=== PATIENT | male | born 1955 ===

== ENCOUNTER 2018-07-18 11:01 | Inpatient (IN) ==
[2018-07-18 12:07] LABS: Basophils % 0.4 % (0.0-0.8); Eosinophils # 0.2 10*3/uL (0.0-0.87); Eosinophils % 2.1 % (0.00-10.9); Hematocrit 39.6 VOL% (42.0-52.0); Hemoglobin 13.9 GM/DL (14.0-18.0); Immature Granulocytes % 0.7 %; Immature Granulocytes Absolute 0.07 #; Lymphocytes # 1.9 10*3/uL (1.4-4.0); Lymphocytes % 18.1 % (21.2-54.2); Mean Corpuscular HGB Conc 35.1 GM/DL (32-36); Mean Corpuscular Hemoglobin 31 PG (27-34); Mean Platelet Volume 9.4 FL (9.6-12.0); Monocytes # 0.9 10*3/uL (0.11-0.8); Monocytes % 8.7 % (1.7-12.7); Neutrophils # 7.5 10*3/uL (1.4-7.4); Platelet Count 347 T/CUMM (130-400); White Blood Count 10.7 T/CUMM (4-12)
[2018-07-18] MEDS ORDERED: ONDANSETRON 4 MG/2 ML VIAL IV STA (12:37)
[2018-07-18] MEDS ORDERED: MORPHINE 4 MG/1 ML VIAL IV STA (12:37)
[2018-07-18] MEDS ORDERED: ONDANSETRON 4 MG/2 ML VIAL ONE (12:41)
[2018-07-18] MEDS ORDERED: MORPHINE 4 MG/1 ML VIAL ONE (12:41)
[2018-07-18 12:42] LABS: Albumin 3.7 G/DL (3.4-5.0); Bilirubin,Total 0.6 MG/DL (0.2-1.0); Potassium 3.7 MMOL/L (3.5-5.1); Total Protein 7.9 G/DL (6.4-8.3)
[2018-07-18] MEDS ORDERED: SODIUM CHLORIDE 0.9% 1,000 ML IV STA (12:46)
[2018-07-18] MEDS ORDERED: VANCOMYCIN INJ 1,000 MG in SODIUM CHLORIDE 0.9% 250 ML IV STA (12:46)
[2018-07-18] MEDS ORDERED: DOCUSATE SODIUM 100 MG CAPSULE PO PRN (14:14)
[2018-07-18] MEDS ORDERED: ACETAMINOPHEN 325 MG TABLET PO PRN (14:14)
[2018-07-18] MEDS ORDERED: GLUCAGON 1 MG VIAL IM PRN (14:18)
[2018-07-18] MEDS ORDERED: DEXTROSE 50% 25 GM/50 ML VIAL IV PRN (14:18)
[2018-07-18] MEDS: CLINDAMYCIN INJ 600 MG in PREMIX 1 EACH IV SCH ×2 (16:04→23:00)
[2018-07-18] MEDS: SODIUM CHLORIDE 0.9% 1,000 ML IV SCH (16:04)
[2018-07-18] MEDS: ENOXAPARIN 40 MG/0.4 ML SYRINGE SUBCUT SCH (16:05)
[2018-07-18] MEDS: INSULIN LISPRO 100 UNIT/ML SUBCUT SCH ×2 (18:08→20:23)
[2018-07-18] MEDS: MORPHINE 4 MG/1 ML VIAL IV PRN (20:05)
[2018-07-18] MEDS: MUPIROCIN 2% OINT 22 GM TUBE TOP SCH (20:23)
[2018-07-18] MEDS: [UNRECOGNIZED DRUG - OTHER] TOP SCH (20:24)
[2018-07-18] MEDS ORDERED: HYDROmorphone 2 MG/1 ML VIAL IV PRN (21:34)
[2018-07-18] MEDS: ONDANSETRON 4 MG/2 ML VIAL IV PRN (23:35)
[2018-07-19] MEDS: SODIUM CHLORIDE 0.9% 1,000 ML IV SCH ×4 (00:04→13:45)
[2018-07-19] MEDS: VANCOMYCIN INJ 1,250 MG in SODIUM CHLORIDE 0.9% 250 ML IV SCH ×2 (02:57→15:29)
[2018-07-19 03:38] LABS: Basophils % 0.3 % (0.0-0.8); Eosinophils # 0.2 10*3/uL (0.0-0.87); Eosinophils % 1.4 % (0.00-10.9); Hemoglobin 12.9 GM/DL (14.0-18.0); Immature Granulocytes % 0.6 %; Immature Granulocytes Absolute 0.07 #; Lymphocytes # 1.7 10*3/uL (1.4-4.0); Lymphocytes % 14.7 % (21.2-54.2); Mean Corpuscular HGB Conc 33.1 GM/DL (32-36); Mean Corpuscular Hemoglobin 30 PG (27-34); Mean Corpuscular Volume 90.1 FL (87-102); Mean Platelet Volume 9.6 FL (9.6-12.0); Monocytes # 0.9 10*3/uL (0.11-0.8); Monocytes % 7.6 % (1.7-12.7); Neutrophils # 8.9 10*3/uL (1.4-7.4); Neutrophils % 75.4 % (38.7-73.9); Platelet Count 344 T/CUMM (130-400); Red Blood Count 4.33 MC/CUMM (3.8-5.5); Red Cell Distribution Width 12.9 % (9.3-17.3); White Blood Count 11.7 T/CUMM (4-12)
[2018-07-19 03:57] LABS: Albumin 3.4 G/DL (3.4-5.0); Bilirubin,Total 0.6 MG/DL (0.2-1.0); Calcium 8.5 MG/DL (8.5-10.1); Osmolality,Calculated 279.7 MOS/KG (273-304); Potassium 4.9 MMOL/L (3.5-5.1); Total Protein 7.2 G/DL (6.4-8.3)
[2018-07-19] MEDS: CLINDAMYCIN INJ 600 MG in PREMIX 1 EACH IV SCH ×3 (05:55→22:25)
[2018-07-19] MEDS: LOSARTAN 50 MG TABLET PO SCH (08:35)
[2018-07-19] MEDS: INSULIN LISPRO 100 UNIT/ML SUBCUT SCH ×4 (08:35→20:35)
[2018-07-19] MEDS: LUBIPROSTONE 24 MCG CAPSULE PO SCH (08:36)
[2018-07-19] MEDS: MORPHINE 4 MG/1 ML VIAL IV PRN ×2 (08:36→16:10)
[2018-07-19] MEDS: ASPIRIN EC 81 MG TABLET PO SCH (08:36)
[2018-07-19] MEDS: amLODIPine 10 MG TABLET PO SCH (08:36)
[2018-07-19] MEDS: CHLORTHALIDONE 25 MG TABLET PO SCH (08:36)
[2018-07-19] MEDS: GLIMEPIRIDE 4 MG TABLET PO SCH ×2 (08:36→20:34)
[2018-07-19] MEDS: GABAPENTIN 100 MG CAPSULE PO SCH ×3 (08:36→20:34)
[2018-07-19] MEDS: PANTOPRAZOLE 40 MG TABLET PO SCH (08:36)
[2018-07-19] MEDS: ONDANSETRON 4 MG/2 ML VIAL IV PRN ×2 (08:37→13:55)
[2018-07-19] MEDS: MUPIROCIN 2% OINT 22 GM TUBE TOP SCH ×3 (08:38→20:34)
[2018-07-19] MEDS: [UNRECOGNIZED DRUG - OTHER] TOP SCH ×3 (08:39→20:34)
[2018-07-19] MEDS: sitaGLIPtin 100 MG TABLET PO SCH (08:41)
[2018-07-19] MEDS: ENOXAPARIN 40 MG/0.4 ML SYRINGE SUBCUT SCH (14:36)
[2018-07-20] MEDS: VANCOMYCIN INJ 1,250 MG in SODIUM CHLORIDE 0.9% 250 ML IV SCH ×2 (02:50→14:43)
[2018-07-20] MEDS: SODIUM CHLORIDE 0.9% 1,000 ML IV SCH ×2 (02:50→20:16)
[2018-07-20 03:48] LABS: Basophils % 0.1 % (0.0-0.8); Eosinophils # 0.3 10*3/uL (0.0-0.87); Eosinophils % 3.9 % (0.00-10.9); Hematocrit 37.1 VOL% (42.0-52.0); Hemoglobin 12.3 GM/DL (14.0-18.0); Immature Granulocytes % 0.4 %; Immature Granulocytes Absolute 0.03 #; Lymphocytes # 2.3 10*3/uL (1.4-4.0); Lymphocytes % 29.7 % (21.2-54.2); Mean Corpuscular HGB Conc 33.2 GM/DL (32-36); Mean Corpuscular Hemoglobin 30 PG (27-34); Mean Corpuscular Volume 89.6 FL (87-102); Mean Platelet Volume 9.3 FL (9.6-12.0); Monocytes # 0.8 10*3/uL (0.11-0.8); Monocytes % 9.8 % (1.7-12.7); Neutrophils # 4.4 10*3/uL (1.4-7.4); Neutrophils % 56.1 % (38.7-73.9); Platelet Count 336 T/CUMM (130-400); Red Blood Count 4.14 MC/CUMM (3.8-5.5); White Blood Count 7.9 T/CUMM (4-12)
[2018-07-20 04:09] LABS: Calcium 8.1 MG/DL (8.5-10.1); Osmolality,Calculated 275.5 MOS/KG (273-304); Potassium 3.4 MMOL/L (3.5-5.1)
[2018-07-20] MEDS: CLINDAMYCIN INJ 600 MG in PREMIX 1 EACH IV SCH ×3 (06:41→23:16)
[2018-07-20] MEDS: INSULIN LISPRO 100 UNIT/ML SUBCUT SCH ×4 (07:30→21:01)
[2018-07-20] MEDS: GABAPENTIN 100 MG CAPSULE PO SCH ×3 (09:12→21:01)
[2018-07-20] MEDS: LUBIPROSTONE 24 MCG CAPSULE PO SCH (09:13)
[2018-07-20] MEDS: CHLORTHALIDONE 25 MG TABLET PO SCH (09:13)
[2018-07-20] MEDS: ASPIRIN EC 81 MG TABLET PO SCH (09:13)
[2018-07-20] MEDS: PANTOPRAZOLE 40 MG TABLET PO SCH (09:13)
[2018-07-20] MEDS: amLODIPine 10 MG TABLET PO SCH (09:13)
[2018-07-20] MEDS: GLIMEPIRIDE 4 MG TABLET PO SCH ×2 (09:14→21:01)
[2018-07-20] MEDS: LOSARTAN 50 MG TABLET PO SCH (09:14)
[2018-07-20] MEDS: MUPIROCIN 2% OINT 22 GM TUBE TOP SCH ×3 (09:29→21:02)
[2018-07-20] MEDS: [UNRECOGNIZED DRUG - OTHER] TOP SCH ×3 (09:29→21:02)
[2018-07-20] MEDS: sitaGLIPtin 100 MG TABLET PO SCH (09:30)
[2018-07-20] MEDS: ENOXAPARIN 40 MG/0.4 ML SYRINGE SUBCUT SCH (13:43)
[2018-07-21] MEDS: SODIUM CHLORIDE 0.9% 1,000 ML IV SCH ×4 (00:24→19:12)
[2018-07-21] MEDS: VANCOMYCIN INJ 1,250 MG in SODIUM CHLORIDE 0.9% 250 ML IV SCH ×2 (03:07→15:47)
[2018-07-21 03:59] LABS: Basophils % 0.3 % (0.0-0.8); Eosinophils # 0.3 10*3/uL (0.0-0.87); Eosinophils % 2.8 % (0.00-10.9); Hematocrit 36.3 VOL% (42.0-52.0); Hemoglobin 12.6 GM/DL (14.0-18.0); Immature Granulocytes % 0.7 %; Immature Granulocytes Absolute 0.06 #; Lymphocytes # 1.8 10*3/uL (1.4-4.0); Lymphocytes % 19.4 % (21.2-54.2); Mean Corpuscular HGB Conc 34.7 GM/DL (32-36); Mean Corpuscular Hemoglobin 31 PG (27-34); Mean Corpuscular Volume 88.1 FL (87-102); Mean Platelet Volume 9.1 FL (9.6-12.0); Monocytes # 0.9 10*3/uL (0.11-0.8); Monocytes % 9.3 % (1.7-12.7); Neutrophils # 6.2 10*3/uL (1.4-7.4); Neutrophils % 67.5 % (38.7-73.9); Platelet Count 351 T/CUMM (130-400); Red Blood Count 4.12 MC/CUMM (3.8-5.5); Red Cell Distribution Width 12.8 % (9.3-17.3); White Blood Count 9.2 T/CUMM (4-12)
[2018-07-21 04:25] LABS: Albumin 3.1 G/DL (3.4-5.0); Bilirubin,Total 0.4 MG/DL (0.2-1.0); Calcium 8.1 MG/DL (8.5-10.1); Osmolality,Calculated 271.8 MOS/KG (273-304); Potassium 3.2 MMOL/L (3.5-5.1); Total Protein 7.1 G/DL (6.4-8.3)
[2018-07-21] MEDS: CLINDAMYCIN INJ 600 MG in PREMIX 1 EACH IV SCH ×3 (06:32→23:15)
[2018-07-21] MEDS: INSULIN LISPRO 100 UNIT/ML SUBCUT SCH ×4 (08:12→22:26)
[2018-07-21] MEDS: LOSARTAN 50 MG TABLET PO SCH (08:49)
[2018-07-21] MEDS: ASPIRIN EC 81 MG TABLET PO SCH (08:49)
[2018-07-21] MEDS: PANTOPRAZOLE 40 MG TABLET PO SCH (08:49)
[2018-07-21] MEDS: GABAPENTIN 100 MG CAPSULE PO SCH ×3 (08:49→21:34)
[2018-07-21] MEDS: amLODIPine 10 MG TABLET PO SCH (08:49)
[2018-07-21] MEDS: MUPIROCIN 2% OINT 22 GM TUBE TOP SCH ×3 (08:50→21:33)
[2018-07-21] MEDS: sitaGLIPtin 100 MG TABLET PO SCH (08:50)
[2018-07-21] MEDS: [UNRECOGNIZED DRUG - OTHER] TOP SCH ×2 (08:50→15:21)
[2018-07-21] MEDS: CHLORTHALIDONE 25 MG TABLET PO SCH (08:50)
[2018-07-21] MEDS: GLIMEPIRIDE 4 MG TABLET PO SCH ×2 (08:50→21:34)
[2018-07-21] MEDS: LUBIPROSTONE 24 MCG CAPSULE PO SCH (08:50)
[2018-07-21] MEDS: POTASSIUM CHLORIDE 20 MEQ TABLET PO PRN ×4 (08:50→16:48)
[2018-07-21] MEDS ORDERED: LIDOCAINE 1%/EPI INJ 20 ML VIAL MISC INJ ONE (12:23)
[2018-07-21] MEDS: ENOXAPARIN 40 MG/0.4 ML SYRINGE SUBCUT SCH (15:07)
[2018-07-21] MEDS: CHOLECALCIFEROL 1,000 UNIT TABLET PO SCH (15:47)
[2018-07-22] MEDS: VANCOMYCIN INJ 1,250 MG in SODIUM CHLORIDE 0.9% 250 ML IV SCH ×2 (03:21→15:22)
[2018-07-22] MEDS: CLINDAMYCIN INJ 600 MG in PREMIX 1 EACH IV SCH ×3 (05:55→21:30)
[2018-07-22 05:59] LABS: Basophils % 0.4 % (0.0-0.8); Eosinophils # 0.4 10*3/uL (0.0-0.87); Eosinophils % 4.4 % (0.00-10.9); Hematocrit 37.4 VOL% (42.0-52.0); Hemoglobin 12.9 GM/DL (14.0-18.0); Immature Granulocytes % 0.6 %; Immature Granulocytes Absolute 0.05 #; Lymphocytes % 25.3 % (21.2-54.2); Mean Corpuscular HGB Conc 34.5 GM/DL (32-36); Mean Corpuscular Hemoglobin 31 PG (27-34); Mean Corpuscular Volume 88.4 FL (87-102); Mean Platelet Volume 9.1 FL (9.6-12.0); Monocytes # 0.7 10*3/uL (0.11-0.8); Neutrophils # 4.8 10*3/uL (1.4-7.4); Neutrophils % 60.3 % (38.7-73.9); Platelet Count 361 T/CUMM (130-400); Red Blood Count 4.23 MC/CUMM (3.8-5.5); Red Cell Distribution Width 12.9 % (9.3-17.3); White Blood Count 7.9 T/CUMM (4-12)
[2018-07-22 06:17] LABS: Calcium 8.7 MG/DL (8.5-10.1); Osmolality,Calculated 278.4 MOS/KG (273-304); Potassium 3.6 MMOL/L (3.5-5.1)
[2018-07-22] MEDS: SODIUM CHLORIDE 0.9% 1,000 ML IV SCH ×3 (07:04→21:33)
[2018-07-22] MEDS: INSULIN LISPRO 100 UNIT/ML SUBCUT SCH ×4 (07:30→21:21)
[2018-07-22] MEDS: ASPIRIN EC 81 MG TABLET PO SCH (09:59)
[2018-07-22] MEDS: sitaGLIPtin 100 MG TABLET PO SCH (09:59)
[2018-07-22] MEDS: GABAPENTIN 100 MG CAPSULE PO SCH ×3 (09:59→21:20)
[2018-07-22] MEDS: CHLORTHALIDONE 25 MG TABLET PO SCH (09:59)
[2018-07-22] MEDS: CHOLECALCIFEROL 1,000 UNIT TABLET PO SCH (09:59)
[2018-07-22] MEDS: GLIMEPIRIDE 4 MG TABLET PO SCH ×2 (09:59→21:20)
[2018-07-22] MEDS: MUPIROCIN 2% OINT 22 GM TUBE TOP SCH ×3 (09:59→21:21)
[2018-07-22] MEDS: LOSARTAN 50 MG TABLET PO SCH (09:59)
[2018-07-22] MEDS: PANTOPRAZOLE 40 MG TABLET PO SCH (09:59)
[2018-07-22] MEDS: POTASSIUM CHLORIDE 20 MEQ TABLET PO PRN (09:59)
[2018-07-22] MEDS: amLODIPine 10 MG TABLET PO SCH (09:59)
[2018-07-22] MEDS: LUBIPROSTONE 24 MCG CAPSULE PO SCH (09:59)
[2018-07-22] MEDS: ENOXAPARIN 40 MG/0.4 ML SYRINGE SUBCUT SCH (15:22)
[2018-07-23] MEDS: SODIUM CHLORIDE 0.9% 1,000 ML IV SCH ×2 (00:45→14:38)
[2018-07-23] MEDS: VANCOMYCIN INJ 1,250 MG in SODIUM CHLORIDE 0.9% 250 ML IV SCH (03:37)
[2018-07-23 05:43] LABS: Basophils % 0.3 % (0.0-0.8); Eosinophils # 0.4 10*3/uL (0.0-0.87); Eosinophils % 3.8 % (0.00-10.9); Hematocrit 38.6 VOL% (42.0-52.0); Hemoglobin 13.1 GM/DL (14.0-18.0); Immature Granulocytes % 0.8 %; Immature Granulocytes Absolute 0.07 #; Lymphocytes # 2.4 10*3/uL (1.4-4.0); Lymphocytes % 25.3 % (21.2-54.2); Mean Corpuscular HGB Conc 33.9 GM/DL (32-36); Mean Corpuscular Hemoglobin 30 PG (27-34); Mean Corpuscular Volume 88.5 FL (87-102); Mean Platelet Volume 9.6 FL (9.6-12.0); Monocytes # 0.8 10*3/uL (0.11-0.8); Monocytes % 8.7 % (1.7-12.7); Neutrophils # 5.7 10*3/uL (1.4-7.4); Neutrophils % 61.1 % (38.7-73.9); Platelet Count 384 T/CUMM (130-400); Red Blood Count 4.36 MC/CUMM (3.8-5.5); Red Cell Distribution Width 12.9 % (9.3-17.3); White Blood Count 9.3 T/CUMM (4-12)
[2018-07-23] MEDS: CLINDAMYCIN INJ 600 MG in PREMIX 1 EACH IV SCH (05:46)
[2018-07-23 06:05] LABS: Calcium 8.8 MG/DL (8.5-10.1); Osmolality,Calculated 273.7 MOS/KG (273-304); Potassium 3.4 MMOL/L (3.5-5.1)
[2018-07-23] MEDS: MUPIROCIN 2% OINT 22 GM TUBE TOP SCH (08:10)
[2018-07-23] MEDS: INSULIN LISPRO 100 UNIT/ML SUBCUT SCH ×2 (10:01→13:45)
[2018-07-23] MEDS: LUBIPROSTONE 24 MCG CAPSULE PO SCH (10:21)
[2018-07-23] MEDS: sitaGLIPtin 100 MG TABLET PO SCH (10:21)
[2018-07-23] MEDS: GABAPENTIN 100 MG CAPSULE PO SCH (10:21)
[2018-07-23] MEDS: ASPIRIN EC 81 MG TABLET PO SCH (10:22)
[2018-07-23] MEDS: LOSARTAN 50 MG TABLET PO SCH (10:22)
[2018-07-23] MEDS: amLODIPine 10 MG TABLET PO SCH (10:22)
[2018-07-23] MEDS: GLIMEPIRIDE 4 MG TABLET PO SCH (10:23)
[2018-07-23] MEDS: PANTOPRAZOLE 40 MG TABLET PO SCH (10:24)
[2018-07-23] MEDS: CHLORTHALIDONE 25 MG TABLET PO SCH (10:24)
[2018-07-23] MEDS: CHOLECALCIFEROL 1,000 UNIT TABLET PO SCH (10:24)
[2018-07-23 12:25] VITALS: BP 118/71
== END 2018-07-23 14:08 | disposition home or self-care (01) | DRG 603 ==
LOC: N.ED 11:01 → N.EDINP 14:14 → SUATTDRO 14:14 → N.EDINP 15:48 → N.ICU 15:58 → N.3E 07-19 12:59
PROVIDERS: ADMIT Family Medicine; ATTEND Hospitalist

== ENCOUNTER 2022-05-16 08:00 | Inpatient (IN) ==
[2022-05-16] MEDS ORDERED: DEXTROSE 50% 25 GM/50 ML VIAL IV PRN (08:55)
[2022-05-16] MEDS ORDERED: GLUCAGON 1 MG VIAL IM PRN ×2 (08:55)
[2022-05-16] MEDS ORDERED: DEXTROSE 10% 250 ML BAG IV PRN (08:55)
[2022-05-16] MEDS ORDERED: NITROGLYCERIN SL 0.4 MG TABLET SL PRN (09:00)
[2022-05-16] MEDS ORDERED: CLORAZEPATE 3.75 MG TABLET PO PRN (09:00)
[2022-05-16] MEDS ORDERED: MORPHINE 2 MG/1 ML SYRINGE IV PRN (09:00)
[2022-05-16 16:16] LABS: Basophils % 0.3 % (0.0-0.8); Eosinophils # 0.4 10*3/uL (0.0-0.87); Eosinophils % 3.8 % (0.00-10.9); Hematocrit 38.6 VOL% (42.0-52.0); Hemoglobin 13.5 GM/DL (14.0-18.0); Immature Granulocytes % 0.5 %; Immature Granulocytes Absolute 0.05 #; Lymphocytes # 2.6 10*3/uL (1.4-4.0); Lymphocytes % 27.9 % (21.2-54.2); Monocytes # 0.9 10*3/uL (0.11-0.8); Monocytes % 9.6 % (1.7-12.7); Neutrophils % 57.9 % (38.7-73.9); Platelet Count 323 T/CUMM (130-400); Red Blood Count 4.24 MC/CUMM (3.8-5.5); Red Cell Distribution Width 13.4 % (9.3-17.3); White Blood Count 9.2 T/CUMM (4-12)
[2022-05-16 16:44] LABS: Alanine Aminotransferase 30 U/L (16-61); Albumin 3.7 G/DL (3.4-5.0); Alkaline Phosphatase 93 U/L (45-117); Aspartate Amino Transferase 15 U/L (0-37); Bilirubin,Total < 0.39 MG/DL (0.20-1.00); Blood Urea Nitrogen 21 MG/DL (7-18); Calcium 9.5 MG/DL (8.5-10.1); Carbon Dioxide 28 MMOL/L (21-32); Chloride 105 MMOL/L (98-107); Glucose 167 MG/DL (74-106); Osmolality,Calculated 279.8 MOS/KG (273-304); Potassium 4.2 MMOL/L (3.5-5.1); Sodium 137 MMOL/L (136-145); Total Protein 7.4 G/DL (6.4-8.2)
[2022-05-16 16:59] LABS: Arterial Base Excess iSTAT 1 MMOL/L (-2.5-2.5); Arterial Bicarbonate iSTAT 26.1 MMOL/L (20-26); Arterial O2 Saturation iSTAT 98 % (95-100); Arterial PCO2 iSTAT 41 MM HG (35-48); Arterial PO2 iSTAT 96 MM HG (80-95); Arterial Total CO2 iSTAT 27 MMO/L (23-27); Arterial pH iSTAT 7.414 (7.35-7.45)
[2022-05-16] MEDS: CHLORHEXIDINE 4% SOLN 118 ML BOTTLE TOP SCH ×2 (17:27→21:06)
[2022-05-16] MEDS: CHLORHEXIDINE 0.12% ORAL RINSE 60 ML BOTTLE SWISH/SPIT SCH ×2 (17:33→21:06)
[2022-05-16] MEDS: INSULIN REGULAR 100 UNIT/ML SUBCUT SCH ×3 (17:34→21:06)
[2022-05-17] MEDS ORDERED: PAPAVERINE 60 MG/2 ML VIAL ONE (04:27)
[2022-05-17] MEDS ORDERED: VANCOMYCIN 500 MG VIAL ONE (04:27)
[2022-05-17] MEDS ORDERED: VANCOMYCIN 1,000 MG VIAL ONE (04:27)
[2022-05-17] MEDS ORDERED: DIAZEPAM 5 MG TABLET PO ONE (05:00)
[2022-05-17] MEDS ORDERED: VANCOMYCIN INJ 1,000 MG in SODIUM CHLORIDE 0.9% 250 ML IV ONE (05:00)
[2022-05-17] MEDS ORDERED: FAMOTIDINE 20 MG TABLET PO ONE (05:00)
[2022-05-17] MEDS: CHLORHEXIDINE 4% SOLN 118 ML BOTTLE TOP SCH (05:04)
[2022-05-17] MEDS ORDERED: VECURONIUM 10 MG VIAL IV ONE ×2 (05:51→08:30)
[2022-05-17] MEDS ORDERED: CALCIUM CHLORIDE 1,000 MG/10 ML VIAL IV ONE (05:51)
[2022-05-17] MEDS ORDERED: ETOMIDATE 40 MG/20 ML VIAL IV ONE (05:51)
[2022-05-17] MEDS ORDERED: MIDAZOLAM 10 MG/2 ML VIAL ONE ×5 (05:51→05:55)
[2022-05-17] MEDS ORDERED: LIDOCAINE 2% 5 ML VIAL ONE ×2 (05:51→11:37)
[2022-05-17] MEDS ORDERED: SUFentanil 250 MCG/5 ML AMP ONE ×2 (05:52→08:10)
[2022-05-17] MEDS ORDERED: MINERAL OIL/PETROLATUM OPH OINT 3.5 GM TUBE ONE (05:53)
[2022-05-17] MEDS ORDERED: AMINOCAPROIC ACID 5,000 MG/20 ML VIAL ONE (06:01)
[2022-05-17] MEDS ORDERED: PHENYLEPHRINE DRIP 20 MG/250 ML PREMIX IV ONE (06:04)
[2022-05-17] MEDS ORDERED: PHENYLEPHRINE 1 MG/10 ML SYRINGE IV ONE (06:05)
[2022-05-17] MEDS ORDERED: FAMOTIDINE 20 MG/2 ML VIAL IV ONE (06:43)
[2022-05-17] MEDS ORDERED: ePHEDrine 50 MG/ML VIAL ONE (07:15)
[2022-05-17 07:41] LABS: ABG Base Excess 2.8 MMOL/L (-2.5-2.5); ABG HCO3 26.9 MMOL/L (20-26); ABG Oxygen Saturation 99.8 % (95-100); ABG PCO2 41.6 MM HG (35-48); ABG PH 7.427 (7.35-7.45); Glucose Heart Surgery 164 MG/DL (74-106); Hematocrit Heart Surgery 38.9 PERCENT (42-52); Hemoglobin Heart Surgery 12.6 G/DL (14.0-18.0); Ionized Calcium Arterial 1.11 MMOL/L (1.21-1.46); PCO2 Patient Temp Arterial 41.6 MMHG; PH Patient Temp Arterial 7.427; Patient Temperature 37 CELCIUS; Potassium Heart/CVR 3.4 MMOL/L (3.5-5.1); Sodium Heart/CVR 138 MMOL/L (135-145)
[2022-05-17] MEDS ORDERED: NITROPRUSSIDE 50 MG/2 ML VIAL ONE (07:55)
[2022-05-17] MEDS ORDERED: SODIUM BICARBONATE 50 MEQ/50 ML VIAL IV ONE ×6 (07:55→16:24)
[2022-05-17] MEDS ORDERED: POTASSIUM CHLORIDE RIDER 20 MEQ/100 ML PREMIX IV ONE (07:56)
[2022-05-17] MEDS ORDERED: CALCIUM CHLORIDE 1,000 MG/10 ML SYRINGE IV ONE (07:56)
[2022-05-17] MEDS ORDERED: PHENYLEPHRINE DRIP 40 MG/250 ML PREMIX IV ONE (07:56)
[2022-05-17 08:49] LABS: Bacteria,Urine Occasional /HPF (Few); Mucus,Urine Occasional /LPF (Occasional); RBC,Urine 1 /HPF (0-4)
[2022-05-17 08:50] LABS: Urine Appearance Clear (Clear); Urine Color Yellow (Yellow); Urine Specific Gravity 1.025 (1.001-1.035); Urine pH 6.5 (4.5-8.0)
[2022-05-17 08:51] LABS: Bilirubin,Urine Negative (Negative); Blood, Urine Negative (Negative); Glucose,Urine (UA) Negative (Negative); Ketones,Urine Negative (Negative); Nitrite,Urine Negative (Negative); Protein,Urine 30 mg/dL (Negative); Urine Urobilinogen 0.2 eU/dL (<2.0)
[2022-05-17] MEDS ORDERED: propofoL 200 MG/20 ML VIAL IV ONE (09:13)
[2022-05-17] MEDS ORDERED: ALBUMIN 5% 25.0 GM/500 ML VIAL IV ONE (09:15)
[2022-05-17] MEDS ORDERED: diphenhydrAMINE 50 MG/1 ML VIAL ONE (09:26)
[2022-05-17 09:27] LABS: PCO2 Patient Temp Venous 37.8 MM HG; PH Patient Temp Venous 7.455; PO2 Patient Temp Venous 39.1 MM HG; Potassium Heart/CVR 4.1 MMOL/L (3.5-5.1); VBG Base Excess 2.8 MEQ/L (0-4); VBG HCO3 26.7 MEQ/L (24-28); VBG Oxygen Saturation 82.4 %; VBG PCO2 43.7 MMHG (41-51); VBG PH 7.411; VBG Total CO2 25.9 MMOL/L
[2022-05-17 09:57] LABS: Hematocrit Heart Surgery 27.5 PERCENT (42-52); Hemoglobin Heart Surgery 8.9 G/DL (14.0-18.0); PCO2 Patient Temp Venous 37.1 MM HG; PH Patient Temp Venous 7.458; PO2 Patient Temp Venous 37.4 MM HG; Potassium Heart/CVR 4.2 MMOL/L (3.5-5.1); VBG Base Excess 2.6 MEQ/L (0-4); VBG HCO3 26.5 MEQ/L (24-28); VBG Oxygen Saturation 80.3 %; VBG PCO2 42.9 MMHG (41-51); VBG PH 7.414; VBG PO2 46.1 MMHG (17-40); VBG Total CO2 25.4 MMOL/L
[2022-05-17] MEDS: INSULIN REGULAR 100 UNIT/ML SUBCUT SCH ×2 (10:01→14:53)
[2022-05-17] MEDS: CHLORHEXIDINE 0.12% ORAL RINSE 60 ML BOTTLE SWISH/SPIT SCH ×2 (10:01→21:12)
[2022-05-17] MEDS: SODIUM CHLORIDE 0.9% 1,000 ML IV SCH (10:01)
[2022-05-17 10:27] LABS: Hematocrit Heart Surgery 29.1 PERCENT (42-52); Hemoglobin Heart Surgery 9.4 G/DL (14.0-18.0); PCO2 Patient Temp Venous 45.2 MM HG; PH Patient Temp Venous 7.386; PO2 Patient Temp Venous 41.4 MM HG; Potassium Heart/CVR 4.3 MMOL/L (3.5-5.1); VBG Base Excess 1.7 MEQ/L (0-4); VBG HCO3 25.6 MEQ/L (24-28); VBG Oxygen Saturation 72.9 %; VBG PCO2 45.2 MMHG (41-51); VBG PH 7.386; VBG PO2 41.4 MMHG (17-40)
[2022-05-17] MEDS ORDERED: NITROGLYCERIN DRIP 50 MG/250 ML BOTTLE IV ONE (10:53)
[2022-05-17 11:03] LABS: ABG HCO3 24.5 MMOL/L (20-26); ABG PCO2 35.8 MM HG (35-48); ABG PH 7.433 (7.35-7.45); ABG TCO2 21.9 MMOL/L (23-27); Glucose Heart Surgery 327 MG/DL (74-106); Hematocrit Heart Surgery 28.9 PERCENT (42-52); Hemoglobin Heart Surgery 9.3 G/DL (14.0-18.0); Ionized Calcium Arterial 1.17 MMOL/L (1.21-1.46); PCO2 Patient Temp Arterial 35.8 MMHG; PH Patient Temp Arterial 7.433; Patient Temperature 37 CELCIUS; Potassium Heart/CVR 3.8 MMOL/L (3.5-5.1); Sodium Heart/CVR 133 MMOL/L (135-145)
[2022-05-17] MEDS ORDERED: THROMBIN TOPICAL (RECOMBINANT) 5,000 UNIT VIAL TOP ONE (11:16)
[2022-05-17] MEDS ORDERED: ALBUMIN 25% 25 GM/100 ML VIAL IV ONE (11:37)
[2022-05-17] MEDS ORDERED: DEXTROSE 5% KCL 20 MEQ 20 MEQ/1,000 ML BAG IV ONE (11:37)
[2022-05-17] MEDS ORDERED: MAGNESIUM SULFATE 5 GM/10 ML VIAL IV ONE (11:37)
[2022-05-17] MEDS ORDERED: methylPREDNISolone SOD SUC 1,000 MG/8 ML VIAL ONE (11:37)
[2022-05-17] MEDS ORDERED: PROTAMINE SULFATE 250 MG/25 ML VIAL IV ONE (11:37)
[2022-05-17] MEDS ORDERED: PROTAMINE SULFATE 50 MG/5 ML VIAL IV ONE (11:38)
[2022-05-17] MEDS ORDERED: MANNITOL 12.5 GM/50 ML VIAL IV ONE (11:38)
[2022-05-17] MEDS ORDERED: FUROSEMIDE 20 MG/2 ML VIAL ONE (11:38)
[2022-05-17] MEDS ORDERED: HEPARIN 10,000 UNIT/10 ML VIAL ONE (11:38)
[2022-05-17] MEDS: SODIUM CHLORIDE 0.45% 1,000 ML IV SCH ×2 (12:07)
[2022-05-17] MEDS ORDERED: ONDANSETRON 4 MG/2 ML VIAL IV PRN (12:43)
[2022-05-17] MEDS ORDERED: MAGNESIUM SULF RIDER 4 GM/100 ML PREMIX IV PRN (12:43)
[2022-05-17] MEDS ORDERED: ACETAMINOPHEN 650 MG SUPP RECTAL PRN (12:43)
[2022-05-17] MEDS ORDERED: MIDAZOLAM 2 MG/2 ML VIAL IV PRN (12:43)
[2022-05-17] MEDS ORDERED: MORPHINE 2 MG/1 ML SYRINGE IV PRN (12:43)
[2022-05-17] MEDS ORDERED: VECURONIUM 10 MG VIAL IV PRN ×2 (12:43)
[2022-05-17] MEDS ORDERED: MAGNESIUM SULF RIDER 2 GM/50 ML PREMIX IV PRN (12:43)
[2022-05-17] MEDS ORDERED: DEXTROSE 10% 250 ML BAG IV PRN ×2 (12:43)
[2022-05-17] MEDS ORDERED: MORPHINE 10 MG/1 ML VIAL IV PRN (12:43)
[2022-05-17] MEDS ORDERED: MIDAZOLAM 10 MG/2 ML VIAL IV PRN (12:43)
[2022-05-17] MEDS ORDERED: CHLORHEXIDINE 4% SOLN 118 ML BOTTLE TOP PRN (12:43)
[2022-05-17] MEDS ORDERED: NITROPRUSSIDE 100 MG in DEXTROSE 5% 250 ML IV PRN (12:43)
[2022-05-17] MEDS ORDERED: LACTATED RINGERS 250 ML IV PRN (12:43)
[2022-05-17] MEDS ORDERED: INSULIN REGULAR 100 UNIT/ML IV ONE (12:43)
[2022-05-17] MEDS: POTASSIUM CHLORIDE RIDER 20 MEQ/100 ML PREMIX IV PRN ×6 (12:45→23:15)
[2022-05-17 12:49] LABS: Basophils % 0.1 % (0.0-0.8); Eosinophils # 0.1 10*3/uL (0.0-0.87); Eosinophils % 0.4 % (0.00-10.9); Hemoglobin 8.4 GM/DL (14.0-18.0); Immature Granulocytes % 0.7 %; Lymphocytes # 1.5 10*3/uL (1.4-4.0); Lymphocytes % 10.8 % (21.2-54.2); Mean Corpuscular Volume 90.2 FL (87-102); Mean Platelet Volume 9.1 FL (9.6-12.0); Monocytes # 0.8 10*3/uL (0.11-0.8); Monocytes % 5.7 % (1.7-12.7); Neutrophils % 82.3 % (38.7-73.9); Platelet Count 149 T/CUMM (130-400); Red Blood Count 2.66 MC/CUMM (3.8-5.5); Red Cell Distribution Width 13.4 % (9.3-17.3); White Blood Count 14.3 T/CUMM (4-12)
[2022-05-17 12:55] LABS: ABG HCO3 23.6 MMOL/L (20-26); ABG Oxygen Saturation 99.7 % (95-100); ABG PH 7.377 (7.35-7.45); ABG TCO2 22.2 MMOL/L (23-27); Glucose Heart Surgery 260 MG/DL (74-106); Hematocrit Heart Surgery 27.8 PERCENT (42-52); Potassium Heart/CVR 3.6 MMOL/L (3.5-5.1)
[2022-05-17 13:00] LABS: INR 1.1; PT Patient Result 12.2 SECS (10.1-12.1); Partial Thromboplastin Time 36.2 SECS (23.7-32.9)
[2022-05-17] MEDS: PHENYLEPHRINE DRIP 40 MG/250 ML PREMIX IV PRN (13:05)
[2022-05-17] MEDS: CALCIUM CHLORIDE 1,000 MG/10 ML SYRINGE IV PRN ×4 (13:08→13:13)
[2022-05-17 13:14] LABS: CKMB % 4.75 %
[2022-05-17 13:16] LABS: High Sensitive Troponin I* 4156.1 ng/L (0-78)
[2022-05-17] MEDS ORDERED: EPINEPHrine 1 MG/ML VIAL ONE (13:16)
[2022-05-17 13:18] LABS: Albumin 2.7 G/DL (3.4-5.0); Calcium 9.1 MG/DL (8.5-10.1); Osmolality,Calculated 294.1 MOS/KG (273-304); Potassium 3.7 MMOL/L (3.5-5.1)
[2022-05-17] MEDS: ALBUMIN 5% 12.5 GM/250 ML VIAL IV PRN (13:18)
[2022-05-17] MEDS ORDERED: DOPamine 800 MG/250 ML PREMIX IV ONE (13:18)
[2022-05-17] MEDS ORDERED: EPINEPHrine 1 MG/10 ML SYRINGE IV ONE (13:18)
[2022-05-17] MEDS ORDERED: EPINEPHrine 1 MG/10 ML SYRINGE ONE (13:25)
[2022-05-17] MEDS ORDERED: EPINEPHrine 1 MG/ML VIAL IV ONE (13:26)
[2022-05-17] MEDS ORDERED: methylPREDNISolone SOD SUC 125 MG/2 ML VIAL ONE (13:28)
[2022-05-17] MEDS ORDERED: methylPREDNISolone SOD SUC 125 MG/2 ML VIAL IV ONE (13:30)
[2022-05-17 13:50] LABS: ABG Base Excess -6.2 MMOL/L (-2.5-2.5); ABG HCO3 19.4 MMOL/L (20-26); ABG Oxygen Saturation 97.2 % (95-100); ABG PCO2 40.2 MM HG (35-48); ABG PH 7.302 (7.35-7.45); ABG TCO2 17.8 MMOL/L (23-27); Glucose Heart Surgery 326 MG/DL (74-106); Hematocrit Heart Surgery 37.4 PERCENT (42-52); Hemoglobin Heart Surgery 12.2 G/DL (14.0-18.0); Potassium Heart/CVR 3.6 MMOL/L (3.5-5.1)
[2022-05-17] MEDS ORDERED: HEPARIN/NACL 0.9% 2 UNITS/ML 1,000 UNIT/500 ML BAG IV ONE (13:54)
[2022-05-17] MEDS: POTASSIUM CHLORIDE RIDER 10 MEQ/100 ML PREMIX IV PRN ×3 (14:04→21:55)
[2022-05-17] MEDS: LACTATED RINGERS 1,000 ML IV PRN ×3 (14:20→21:05)
[2022-05-17 14:51] LABS: VBG Base Excess -6.7 MEQ/L (0-4); VBG HCO3 18.5 MEQ/L (24-28); VBG Oxygen Saturation 71.4 %; VBG PH 7.186; VBG PO2 49.9 MMHG (17-40); VBG Total CO2 20.9 MMOL/L
[2022-05-17 15:06] LABS: ABG Base Excess -8.1 MMOL/L (-2.5-2.5); ABG HCO3 17.8 MMOL/L (20-26); ABG Oxygen Saturation 98.5 % (95-100); ABG PCO2 46.2 MM HG (35-48); ABG PH 7.227 (7.35-7.45); ABG TCO2 18.1 MMOL/L (23-27); Glucose Heart Surgery 313 MG/DL (74-106); Hematocrit Heart Surgery 27.6 PERCENT (42-52); Hemoglobin Heart Surgery 8.9 G/DL (14.0-18.0); Potassium Heart/CVR 3.4 MMOL/L (3.5-5.1)
[2022-05-17] MEDS ORDERED: SODIUM BICARBONATE 50 MEQ/50 ML SYRINGE IV ONE ×2 (15:16→16:25)
[2022-05-17] MEDS: INSULIN REGULAR DRIP 100 ML IV SCH (15:16)
[2022-05-17 16:19] LABS: ABG Base Excess -5.6 MMOL/L (-2.5-2.5); ABG HCO3 19.8 MMOL/L (20-26); ABG Oxygen Saturation 98.8 % (95-100); ABG PCO2 44.5 MM HG (35-48); ABG PH 7.282 (7.35-7.45); ABG TCO2 19.3 MMOL/L (23-27); Glucose Heart Surgery 329 MG/DL (74-106); Hematocrit Heart Surgery 31.9 PERCENT (42-52); Hemoglobin Heart Surgery 10.3 G/DL (14.0-18.0); Potassium Heart/CVR 4.2 MMOL/L (3.5-5.1)
[2022-05-17 17:18] LABS: ABG Base Excess -1.8 MMOL/L (-2.5-2.5); ABG HCO3 22.9 MMOL/L (20-26); ABG Oxygen Saturation 98.8 % (95-100); ABG PCO2 42.4 MM HG (35-48); ABG PH 7.354 (7.35-7.45); ABG TCO2 21.7 MMOL/L (23-27); Glucose Heart Surgery 295 MG/DL (74-106); Hematocrit Heart Surgery 29.4 PERCENT (42-52); Hemoglobin Heart Surgery 9.5 G/DL (14.0-18.0); Potassium Heart/CVR 3.8 MMOL/L (3.5-5.1)
[2022-05-17] MEDS: methylPREDNISolone SOD SUC 125 MG/2 ML VIAL IV SCH ×2 (17:35→23:59)
[2022-05-17 18:28] LABS: ABG Base Excess -0.8 MMOL/L (-2.5-2.5); ABG HCO3 23.8 MMOL/L (20-26); ABG Oxygen Saturation 98.9 % (95-100); ABG PCO2 41.1 MM HG (35-48); ABG PH 7.379 (7.35-7.45); ABG TCO2 22.1 MMOL/L (23-27); Glucose Heart Surgery 281 MG/DL (74-106); Hematocrit Heart Surgery 30.9 PERCENT (42-52); Potassium Heart/CVR 4.4 MMOL/L (3.5-5.1)
[2022-05-17 19:37] LABS: CKMB % 7.32 %
[2022-05-17 19:41] LABS: High Sensitive Troponin I* 40401.4 ng/L (0-78)
[2022-05-17] MEDS: INSULIN REGULAR 100 UNIT/ML IV PRN (20:12)
[2022-05-17] MEDS ORDERED: AMIODARONE INJ 150 MG in DEXTROSE 5% 100 ML IV ONE (20:47)
[2022-05-17 20:49] LABS: ABG Base Excess 2.7 MMOL/L (-2.5-2.5); ABG HCO3 26.8 MMOL/L (20-26); ABG Oxygen Saturation 99.3 % (95-100); ABG TCO2 24.7 MMOL/L (23-27); Glucose Heart Surgery 249 MG/DL (74-106); Hematocrit Heart Surgery 30.9 PERCENT (42-52); Potassium Heart/CVR 3.6 MMOL/L (3.5-5.1)
[2022-05-17] MEDS ORDERED: AMIODARONE INJ 450 MG in DEXTROSE 5% 241 ML IV SCH (21:00)
[2022-05-17 22:03] LABS: ABG Base Excess 2.8 MMOL/L (-2.5-2.5); ABG HCO3 26.9 MMOL/L (20-26); ABG Oxygen Saturation 99.2 % (95-100); ABG PCO2 37.8 MM HG (35-48); ABG PH 7.456 (7.35-7.45); ABG TCO2 24.2 MMOL/L (23-27); Glucose Heart Surgery 238 MG/DL (74-106); Hematocrit Heart Surgery 30.4 PERCENT (42-52); Hemoglobin Heart Surgery 9.8 G/DL (14.0-18.0); Potassium Heart/CVR 4.5 MMOL/L (3.5-5.1)
[2022-05-17 22:58] LABS: ABG Base Excess 3.3 MMOL/L (-2.5-2.5); ABG HCO3 27.4 MMOL/L (20-26); ABG Oxygen Saturation 99.1 % (95-100); ABG PCO2 43.2 MM HG (35-48); ABG PH 7.422 (7.35-7.45); ABG TCO2 25.6 MMOL/L (23-27); Glucose Heart Surgery 227 MG/DL (74-106); Hematocrit Heart Surgery 30.5 PERCENT (42-52); Hemoglobin Heart Surgery 9.9 G/DL (14.0-18.0); Potassium Heart/CVR 3.8 MMOL/L (3.5-5.1)
[2022-05-17] MEDS: VANCOMYCIN INJ 1,000 MG in SODIUM CHLORIDE 0.9% 250 ML IV SCH (23:44)
[2022-05-18] MEDS: INSULIN REGULAR 100 UNIT/ML IV PRN ×2 (00:03→13:55)
[2022-05-18] MEDS: ALBUMIN 5% 12.5 GM/250 ML VIAL IV PRN ×3 (00:36→21:26)
[2022-05-18] MEDS: INSULIN REGULAR DRIP 100 ML IV SCH ×3 (01:31→13:06)
[2022-05-18 02:08] LABS: ABG Base Excess 3.8 MMOL/L (-2.5-2.5); ABG HCO3 27.8 MMOL/L (20-26); ABG Oxygen Saturation 99.1 % (95-100); ABG PCO2 44.3 MM HG (35-48); ABG TCO2 26.3 MMOL/L (23-27); Glucose Heart Surgery 153 MG/DL (74-106); Hematocrit Heart Surgery 29.1 PERCENT (42-52); Hemoglobin Heart Surgery 9.4 G/DL (14.0-18.0); Potassium Heart/CVR 3.6 MMOL/L (3.5-5.1)
[2022-05-18] MEDS: POTASSIUM CHLORIDE RIDER 20 MEQ/100 ML PREMIX IV PRN ×5 (02:14→23:17)
[2022-05-18] MEDS: POTASSIUM CHLORIDE RIDER 10 MEQ/100 ML PREMIX IV PRN ×3 (02:48→23:46)
[2022-05-18 03:54] LABS: ABG Base Excess 3.2 MMOL/L (-2.5-2.5); ABG HCO3 27.3 MMOL/L (20-26); ABG Oxygen Saturation 98.7 % (95-100); ABG PCO2 47.4 MM HG (35-48); ABG PH 7.391 (7.35-7.45); Glucose Heart Surgery 126 MG/DL (74-106); Hematocrit Heart Surgery 32.9 PERCENT (42-52); Hemoglobin Heart Surgery 10.7 G/DL (14.0-18.0); Potassium Heart/CVR 3.7 MMOL/L (3.5-5.1)
[2022-05-18 04:00] LABS: Basophils % 0.1 % (0.0-0.8); Hemoglobin 10.3 GM/DL (14.0-18.0); Immature Granulocytes % 0.4 %; Immature Granulocytes Absolute 0.06 #; Lymphocytes # 1.1 10*3/uL (1.4-4.0); Lymphocytes % 6.4 % (21.2-54.2); Mean Corpuscular HGB Conc 33.2 GM/DL (32-36); Mean Corpuscular Volume 92.5 FL (87-102); Mean Platelet Volume 9.8 FL (9.6-12.0); Monocytes # 1.2 10*3/uL (0.11-0.8); Neutrophils % 86.1 % (38.7-73.9); Platelet Count 161 T/CUMM (130-400); Red Blood Count 3.35 MC/CUMM (3.8-5.5); Red Cell Distribution Width 14.6 % (9.3-17.3); White Blood Count 16.4 T/CUMM (4-12)
[2022-05-18 04:21] LABS: Bilirubin,Direct 0.27 MG/DL (0.0-0.20); Bilirubin,Total 0.8 MG/DL (0.20-1.00); Calcium 9.1 MG/DL (8.5-10.1); Potassium 3.8 MMOL/L (3.5-5.1); Total Protein 5.4 G/DL (6.4-8.2)
[2022-05-18 04:44] LABS: ABG Base Excess 3.6 MMOL/L (-2.5-2.5); ABG HCO3 27.6 MMOL/L (20-26); ABG Oxygen Saturation 98.8 % (95-100); ABG PCO2 45.8 MM HG (35-48); ABG PH 7.408 (7.35-7.45); Glucose Heart Surgery 115 MG/DL (74-106); Hematocrit Heart Surgery 32.4 PERCENT (42-52); Hemoglobin Heart Surgery 10.5 G/DL (14.0-18.0); Potassium Heart/CVR 3.7 MMOL/L (3.5-5.1)
[2022-05-18 04:56] LABS: CKMB % 8.62 %
[2022-05-18] MEDS: AMIODARONE INJ 450 MG in DEXTROSE 5% 241 ML IV SCH ×2 (04:57→19:57)
[2022-05-18 04:58] LABS: High Sensitive Troponin I* > 125000 ng/L (0-78)
[2022-05-18] MEDS: LACTATED RINGERS 1,000 ML IV PRN (05:31)
[2022-05-18] MEDS ORDERED: ATROPINE 1 MG/10 ML SYRINGE ONE (05:35)
[2022-05-18] MEDS ORDERED: EPINEPHrine 1 MG/10 ML SYRINGE ONE (05:35)
[2022-05-18] MEDS ORDERED: EPINEPHrine 1 MG/ML VIAL ONE (05:36)
[2022-05-18] MEDS ORDERED: EPINEPHrine 1 MG/10 ML SYRINGE IV ONE (05:39)
[2022-05-18] MEDS ORDERED: ROCURONIUM 100 MG/10 ML VIAL IV ONE ×2 (05:41→05:43)
[2022-05-18] MEDS ORDERED: ETOMIDATE 20 MG/10 ML VIAL IV ONE ×2 (05:41→05:42)
[2022-05-18] MEDS ORDERED: DOBUTamine 500 MG/250 ML PREMIX IV ONE (05:54)
[2022-05-18] MEDS ORDERED: DOBUTamine 500 MG/250 ML PREMIX IV PRN (05:55)
[2022-05-18] MEDS: methylPREDNISolone SOD SUC 125 MG/2 ML VIAL IV SCH ×4 (06:04→23:08)
[2022-05-18 06:06] LABS: Hematocrit Heart Surgery 33.2 PERCENT (42-52); Hemoglobin Heart Surgery 10.8 G/DL (14.0-18.0); PCO2 Patient Temp Venous 51.1 MM HG; PH Patient Temp Venous 7.317; PO2 Patient Temp Venous 37.7 MM HG; Potassium Heart/CVR 2.9 MMOL/L (3.5-5.1); VBG Base Excess -0.6 MEQ/L (0-4); VBG HCO3 23.3 MEQ/L (24-28); VBG Oxygen Saturation 63.2 %; VBG PCO2 51.1 MMHG (41-51); VBG PH 7.317; VBG PO2 37.7 MMHG (17-40)
[2022-05-18] MEDS ORDERED: NITROGLYCERIN DRIP 50 MG/250 ML BOTTLE IV ONE (08:08)
[2022-05-18] MEDS ORDERED: NITROGLYCERIN DRIP 50 MG/250 ML BOTTLE IV PRN (08:15)
[2022-05-18 08:38] LABS: ABG Base Excess 1.5 MMOL/L (-2.5-2.5); ABG HCO3 25.8 MMOL/L (20-26); ABG Oxygen Saturation 99.7 % (95-100); ABG PH 7.519 (7.35-7.45); Glucose Heart Surgery 230 MG/DL (74-106); Hematocrit Heart Surgery 34.2 PERCENT (42-52); Hemoglobin Heart Surgery 11.1 G/DL (14.0-18.0); Potassium Heart/CVR 4.2 MMOL/L (3.5-5.1)
[2022-05-18] MEDS: HEPARIN/NACL 0.9% 2 UNITS/ML 1,000 UNIT/500 ML BAG IV SCH (08:38)
[2022-05-18] MEDS: ASPIRIN CHEW 81 MG TABLET PO SCH (09:27)
[2022-05-18] MEDS: KETOROLAC 30 MG/1 ML VIAL IV SCH ×3 (09:27→21:12)
[2022-05-18] MEDS: PANTOPRAZOLE 40 MG VIAL IV SCH (09:29)
[2022-05-18] MEDS: CHLORHEXIDINE 0.12% ORAL RINSE 60 ML BOTTLE SWISH/SPIT SCH ×2 (09:36→21:12)
[2022-05-18] MEDS: VANCOMYCIN INJ 1,000 MG in SODIUM CHLORIDE 0.9% 250 ML IV SCH ×2 (11:55→23:06)
[2022-05-18 12:13] LABS: ABG Base Excess 2.8 MMOL/L (-2.5-2.5); ABG PCO2 32.1 MM HG (35-48); ABG PH 7.509 (7.35-7.45); ABG TCO2 23.1 MMOL/L (23-27); Glucose Heart Surgery 234 MG/DL (74-106); Hematocrit Heart Surgery 30.9 PERCENT (42-52); Potassium Heart/CVR 3.6 MMOL/L (3.5-5.1)
[2022-05-18 12:48] LABS: CKMB % 8.08 %
[2022-05-18 12:56] LABS: High Sensitive Troponin I* 86150.7 ng/L (0-78)
[2022-05-18 14:19] LABS: ABG Base Excess 0.3 MMOL/L (-2.5-2.5); ABG HCO3 24.7 MMOL/L (20-26); ABG Oxygen Saturation 97.8 % (95-100); ABG PCO2 44.9 MM HG (35-48); ABG PH 7.368 (7.35-7.45); ABG TCO2 23.5 MMOL/L (23-27); Glucose Heart Surgery 217 MG/DL (74-106); Hematocrit Heart Surgery 31.6 PERCENT (42-52); Hemoglobin Heart Surgery 10.2 G/DL (14.0-18.0); Potassium Heart/CVR 3.5 MMOL/L (3.5-5.1)
[2022-05-18] MEDS ORDERED: SODIUM CHLORIDE 0.45% 1,000 ML IV SCH (15:13)
[2022-05-18] MEDS: SODIUM CHLORIDE 0.45% 1,000 ML IV SCH ×2 (15:16→15:17)
[2022-05-18] MEDS ORDERED: FUROSEMIDE 40 MG/4 ML VIAL IV PRN (19:04)
[2022-05-18 19:41] LABS: ABG Base Excess 1.6 MMOL/L (-2.5-2.5); ABG HCO3 25.7 MMOL/L (20-26); ABG Oxygen Saturation 94.7 % (95-100); ABG PCO2 45.7 MM HG (35-48); ABG PO2 77.5 MM HG (80-95); ABG TCO2 24.6 MMOL/L (23-27); Glucose Heart Surgery 146 MG/DL (74-106); Hematocrit Heart Surgery 31.6 PERCENT (42-52); Hemoglobin Heart Surgery 10.2 G/DL (14.0-18.0); Potassium Heart/CVR 3.9 MMOL/L (3.5-5.1)
[2022-05-18] MEDS: PHENYLEPHRINE DRIP 40 MG/250 ML PREMIX IV PRN (20:39)
[2022-05-18] MEDS: ASCORBIC ACID 500 MG TABLET PO SCH (21:13)
[2022-05-18] MEDS ORDERED: FUROSEMIDE 40 MG/4 ML VIAL IV ONE (21:57)
[2022-05-19] MEDS: KETOROLAC 30 MG/1 ML VIAL IV SCH ×4 (02:07→20:07)
[2022-05-19 03:58] LABS: Basophils % 0.1 % (0.0-0.8); Hemoglobin 9.5 GM/DL (14.0-18.0); Immature Granulocytes % 0.8 %; Immature Granulocytes Absolute 0.18 #; Lymphocytes # 1.1 10*3/uL (1.4-4.0); Lymphocytes % 4.7 % (21.2-54.2); Mean Corpuscular HGB Conc 33.9 GM/DL (32-36); Mean Corpuscular Volume 92.4 FL (87-102); Mean Platelet Volume 10.4 FL (9.6-12.0); Monocytes # 1.9 10*3/uL (0.11-0.8); Monocytes % 7.8 % (1.7-12.7); Neutrophils % 86.6 % (38.7-73.9); Platelet Count 146 T/CUMM (130-400); Red Blood Count 3.03 MC/CUMM (3.8-5.5); Red Cell Distribution Width 14.9 % (9.3-17.3); White Blood Count 23.9 T/CUMM (4-12)
[2022-05-19 04:18] LABS: Band Neutrophils 1 % (0-10); Lymphocytes 2 % (20-55); Platelet Estimate Normal; Total Cells Counted 100
[2022-05-19 04:19] LABS: Hypochromia Slight
[2022-05-19 04:22] LABS: Albumin 3.2 G/DL (3.4-5.0); Bilirubin,Direct 0.2 MG/DL (0.0-0.20); Bilirubin,Total 0.6 MG/DL (0.20-1.00); Potassium 4.2 MMOL/L (3.5-5.1); Total Protein 5.4 G/DL (6.4-8.2)
[2022-05-19 05:00] LABS: CKMB % 7.08 %; High Sensitive Troponin I* 58178.1 ng/L (0-78)
[2022-05-19] MEDS: methylPREDNISolone SOD SUC 125 MG/2 ML VIAL IV SCH ×2 (06:03→11:26)
[2022-05-19] MEDS: PANTOPRAZOLE 40 MG VIAL IV SCH (08:45)
[2022-05-19] MEDS: ASPIRIN CHEW 81 MG TABLET PO SCH (08:48)
[2022-05-19] MEDS: ASCORBIC ACID 500 MG TABLET PO SCH ×2 (08:49→20:08)
[2022-05-19] MEDS: CHLORHEXIDINE 0.12% ORAL RINSE 60 ML BOTTLE SWISH/SPIT SCH ×2 (08:51→20:08)
[2022-05-19] MEDS ORDERED: CYCLOBENZAPRINE 10 MG TABLET PO PRN (08:59)
[2022-05-19] MEDS ORDERED: ASPIRIN EC 81 MG TABLET PO SCH (09:00)
[2022-05-19] MEDS: HEPARIN/NACL 0.9% 2 UNITS/ML 1,000 UNIT/500 ML BAG IV SCH (09:54)
[2022-05-19] MEDS: GLIMEPIRIDE 4 MG TABLET PO SCH (10:01)
[2022-05-19] MEDS: VANCOMYCIN INJ 1,000 MG in SODIUM CHLORIDE 0.9% 250 ML IV SCH (11:27)
[2022-05-19] MEDS ORDERED: GLUCAGON 1 MG VIAL IM PRN ×3 (11:38→13:29)
[2022-05-19] MEDS ORDERED: ALBUMIN 5% 12.5 GM/250 ML VIAL IV ONE (11:44)
[2022-05-19] MEDS: ALBUMIN 5% 12.5 GM/250 ML VIAL IV PRN (11:55)
[2022-05-19] MEDS: INSULIN REGULAR 100 UNIT/ML SUBCUT SCH ×3 (11:55→20:08)
[2022-05-19] MEDS: AMIODARONE 200 MG TABLET PO SCH ×2 (12:14→20:08)
[2022-05-19] MEDS ORDERED: DOBUTamine 500 MG/250 ML PREMIX IV PRN (13:10)
[2022-05-19] MEDS ORDERED: MAGNESIUM HYDROXIDE SUSP 30 ML UDCUP PO PRN (13:29)
[2022-05-19] MEDS ORDERED: ACETAMINOPHEN 325 MG TABLET PO PRN (13:29)
[2022-05-19] MEDS ORDERED: ALUMINUM/MAGNES/SIMETH MAX STR 30 ML UDCUP PO PRN (13:29)
[2022-05-19] MEDS ORDERED: DEXTROSE 50% 25 GM/50 ML VIAL IV PRN (13:29)
[2022-05-19] MEDS ORDERED: ZALEPLON 5 MG CAPSULE PO PRN (13:29)
[2022-05-19] MEDS ORDERED: oxyCODONE/ACETAMINOPHEN 5-325 MG TABLET PO PRN (13:29)
[2022-05-19] MEDS ORDERED: SODIUM CHLOR 0.45% KCL 20 MEQ 20 MEQ/1,000 ML BAG IV SCH (13:29)
[2022-05-19] MEDS ORDERED: MAGNESIUM SULF RIDER 4 GM/100 ML PREMIX IV PRN (13:29)
[2022-05-19] MEDS ORDERED: ONDANSETRON 4 MG/2 ML VIAL IV PRN (13:29)
[2022-05-19] MEDS ORDERED: POTASSIUM CHLORIDE 20 MEQ TABLET PO PRN (13:29)
[2022-05-19] MEDS ORDERED: MAGNESIUM SULF RIDER 2 GM/50 ML PREMIX IV PRN (13:29)
[2022-05-19] MEDS ORDERED: MORPHINE 2 MG/1 ML SYRINGE IV PRN (13:29)
[2022-05-19] MEDS ORDERED: DEXTROSE 50% 25 GM/50 ML SYRINGE IV PRN (13:34)
[2022-05-19] MEDS: methylPREDNISolone SOD SUC 40 MG/1 ML VIAL IV SCH (20:07)
[2022-05-20] MEDS: KETOROLAC 30 MG/1 ML VIAL IV SCH ×4 (01:29→20:39)
[2022-05-20 04:06] LABS: Basophils % 0.1 % (0.0-0.8); Hematocrit 27.9 VOL% (42.0-52.0); Hemoglobin 9.4 GM/DL (14.0-18.0); Immature Granulocytes % 1.4 %; Immature Granulocytes Absolute 0.29 #; Lymphocytes # 1.3 10*3/uL (1.4-4.0); Lymphocytes % 6.2 % (21.2-54.2); Mean Corpuscular HGB Conc 33.7 GM/DL (32-36); Mean Corpuscular Volume 92.7 FL (87-102); Mean Platelet Volume 10.6 FL (9.6-12.0); Monocytes # 1.9 10*3/uL (0.11-0.8); Monocytes % 9.1 % (1.7-12.7); Neutrophils % 83.2 % (38.7-73.9); Platelet Count 134 T/CUMM (130-400); Red Blood Count 3.01 MC/CUMM (3.8-5.5); Red Cell Distribution Width 14.6 % (9.3-17.3); White Blood Count 20.7 T/CUMM (4-12)
[2022-05-20] MEDS: methylPREDNISolone SOD SUC 40 MG/1 ML VIAL IV SCH ×3 (04:28→20:39)
[2022-05-20 04:31] LABS: Lymphocytes 7 % (20-55); Total Cells Counted 100
[2022-05-20 04:32] LABS: Platelet Estimate Adequate
[2022-05-20 04:33] LABS: Hypochromia Slight
[2022-05-20 05:42] LABS: Albumin 3.3 G/DL (3.4-5.0); Bilirubin,Direct 0.13 MG/DL (0.0-0.20); Bilirubin,Indirect 0.4 MG/DL (0.0-1.0); Bilirubin,Total 0.5 MG/DL (0.20-1.00); CKMB % 4.19 %; Calcium 7.9 MG/DL (8.5-10.1); High Sensitive Troponin I* 41610.3 ng/L (0-78); Osmolality,Calculated 286.4 MOS/KG (273-304); Potassium 3.8 MMOL/L (3.5-5.1); Total Protein 5.9 G/DL (6.4-8.2)
[2022-05-20] MEDS ORDERED: FUROSEMIDE 40 MG/4 ML VIAL IV ONE (06:00)
[2022-05-20] MEDS: INSULIN REGULAR 100 UNIT/ML SUBCUT SCH ×4 (09:20→20:39)
[2022-05-20] MEDS: DOCUSATE SODIUM 100 MG CAPSULE PO SCH (09:24)
[2022-05-20] MEDS: GLIMEPIRIDE 4 MG TABLET PO SCH (09:24)
[2022-05-20] MEDS: FERROUS SULFATE 325 MG TABLET PO SCH (09:24)
[2022-05-20] MEDS: AMIODARONE 200 MG TABLET PO SCH ×2 (09:24→20:40)
[2022-05-20] MEDS: CHLORHEXIDINE 0.12% ORAL RINSE 60 ML BOTTLE SWISH/SPIT SCH ×2 (09:24→20:40)
[2022-05-20] MEDS: PANTOPRAZOLE 40 MG TABLET PO SCH (09:24)
[2022-05-20] MEDS: ASCORBIC ACID 500 MG TABLET PO SCH ×2 (09:24→20:40)
[2022-05-20] MEDS: METOPROLOL TARTRATE 25 MG TABLET PO SCH ×2 (09:57→20:40)
[2022-05-21] MEDS: KETOROLAC 30 MG/1 ML VIAL IV SCH ×4 (01:18→21:11)
[2022-05-21] MEDS: methylPREDNISolone SOD SUC 40 MG/1 ML VIAL IV SCH ×2 (03:17→16:02)
[2022-05-21 05:10] LABS: Basophils % 0.1 % (0.0-0.8); Hematocrit 29.8 VOL% (42.0-52.0); Immature Granulocytes % 1.3 %; Immature Granulocytes Absolute 0.22 #; Lymphocytes % 6.2 % (21.2-54.2); Mean Corpuscular HGB Conc 33.6 GM/DL (32-36); Mean Corpuscular Volume 92.8 FL (87-102); Mean Platelet Volume 11.4 FL (9.6-12.0); Monocytes # 1.3 10*3/uL (0.11-0.8); Monocytes % 7.9 % (1.7-12.7); Neutrophils % 84.5 % (38.7-73.9); Platelet Count 176 T/CUMM (130-400); Red Blood Count 3.21 MC/CUMM (3.8-5.5); Red Cell Distribution Width 14.6 % (9.3-17.3); White Blood Count 16.8 T/CUMM (4-12)
[2022-05-21 06:01] LABS: Albumin 3.2 G/DL (3.4-5.0); Bilirubin,Direct 0.18 MG/DL (0.0-0.20); Bilirubin,Indirect 0.3 MG/DL (0.0-1.0); Bilirubin,Total 0.5 MG/DL (0.20-1.00); CKMB % 1.84 %; Calcium 8.1 MG/DL (8.5-10.1); Osmolality,Calculated 293.3 MOS/KG (273-304); Potassium 3.9 MMOL/L (3.5-5.1)
[2022-05-21 06:02] LABS: High Sensitive Troponin I* 34685.6 ng/L (0-78)
[2022-05-21] MEDS: INSULIN REGULAR 100 UNIT/ML SUBCUT SCH ×4 (08:40→21:12)
[2022-05-21] MEDS: PANTOPRAZOLE 40 MG TABLET PO SCH (09:12)
[2022-05-21] MEDS: ASCORBIC ACID 500 MG TABLET PO SCH ×2 (09:12→21:11)
[2022-05-21] MEDS: GLIMEPIRIDE 4 MG TABLET PO SCH (09:12)
[2022-05-21] MEDS: FERROUS SULFATE 325 MG TABLET PO SCH (09:12)
[2022-05-21] MEDS: AMIODARONE 200 MG TABLET PO SCH ×2 (09:12→21:11)
[2022-05-21] MEDS: DOCUSATE SODIUM 100 MG CAPSULE PO SCH (09:12)
[2022-05-21] MEDS: METOPROLOL TARTRATE 25 MG TABLET PO SCH ×2 (09:12→21:11)
[2022-05-21] MEDS: CHLORHEXIDINE 0.12% ORAL RINSE 60 ML BOTTLE SWISH/SPIT SCH ×2 (09:13→21:12)
[2022-05-22] MEDS: KETOROLAC 30 MG/1 ML VIAL IV SCH (03:55)
[2022-05-22] MEDS: methylPREDNISolone SOD SUC 40 MG/1 ML VIAL IV SCH ×2 (03:56→14:26)
[2022-05-22 04:24] LABS: Basophils % 0.1 % (0.0-0.8); Hematocrit 28.6 VOL% (42.0-52.0); Hemoglobin 9.4 GM/DL (14.0-18.0); Immature Granulocytes % 1.6 %; Immature Granulocytes Absolute 0.26 #; Lymphocytes # 1.3 10*3/uL (1.4-4.0); Lymphocytes % 8.3 % (21.2-54.2); Mean Corpuscular HGB Conc 32.9 GM/DL (32-36); Mean Corpuscular Volume 94.4 FL (87-102); Mean Platelet Volume 10.9 FL (9.6-12.0); Monocytes # 1.7 10*3/uL (0.11-0.8); Monocytes % 10.3 % (1.7-12.7); NRBC # 0.02 10*3/uL; Neutrophils % 79.7 % (38.7-73.9); Platelet Count 195 T/CUMM (130-400); Red Blood Count 3.03 MC/CUMM (3.8-5.5); Red Cell Distribution Width 14.7 % (9.3-17.3)
[2022-05-22 04:47] LABS: CKMB % 1.35 %; Calcium 7.7 MG/DL (8.5-10.1); Osmolality,Calculated 298.8 MOS/KG (273-304); Potassium 3.7 MMOL/L (3.5-5.1)
[2022-05-22] MEDS: DOCUSATE SODIUM 100 MG CAPSULE PO SCH (09:52)
[2022-05-22] MEDS: AMIODARONE 200 MG TABLET PO SCH ×2 (09:52→20:46)
[2022-05-22] MEDS: METOPROLOL TARTRATE 25 MG TABLET PO SCH ×2 (09:53→20:45)
[2022-05-22] MEDS: ASCORBIC ACID 500 MG TABLET PO SCH ×2 (09:53→20:45)
[2022-05-22] MEDS: FERROUS SULFATE 325 MG TABLET PO SCH (09:54)
[2022-05-22] MEDS: GLIMEPIRIDE 4 MG TABLET PO SCH (09:54)
[2022-05-22] MEDS: CHLORHEXIDINE 0.12% ORAL RINSE 60 ML BOTTLE SWISH/SPIT SCH ×2 (09:56→20:46)
[2022-05-22] MEDS: PANTOPRAZOLE 40 MG TABLET PO SCH (09:57)
[2022-05-22] MEDS: INSULIN REGULAR 100 UNIT/ML SUBCUT SCH ×4 (12:03→20:45)
[2022-05-23] MEDS: methylPREDNISolone SOD SUC 40 MG/1 ML VIAL IV SCH (04:21)
[2022-05-23 05:59] LABS: Basophils % 0.1 % (0.0-0.8); Hematocrit 28.5 VOL% (42.0-52.0); Hemoglobin 9.7 GM/DL (14.0-18.0); Immature Granulocytes % 3.3 %; Lymphocytes # 1.1 10*3/uL (1.4-4.0); Lymphocytes % 6.1 % (21.2-54.2); Mean Corpuscular Volume 92.2 FL (87-102); Mean Platelet Volume 10.5 FL (9.6-12.0); Monocytes # 1.9 10*3/uL (0.11-0.8); Monocytes % 10.4 % (1.7-12.7); NRBC # 0.04 10*3/uL; Neutrophils % 80.1 % (38.7-73.9); Platelet Count 197 T/CUMM (130-400); Red Blood Count 3.09 MC/CUMM (3.8-5.5); Red Cell Distribution Width 14.8 % (9.3-17.3); White Blood Count 17.9 T/CUMM (4-12)
[2022-05-23 06:17] LABS: Lymphocytes 6 % (20-55); Platelet Estimate Adequate; Total Cells Counted 100
[2022-05-23 06:21] LABS: Alanine Aminotransferase 105 U/L (16-61); Albumin 3.2 G/DL (3.4-5.0); Alkaline Phosphatase 63 U/L (45-117); Aspartate Amino Transferase 40 U/L (0-37); Bilirubin,Indirect 0.5 MG/DL (0.0-1.0); Blood Urea Nitrogen 34 MG/DL (7-18); Carbon Dioxide 29 MMOL/L (21-32); Chloride 109 MMOL/L (98-107); Glucose 108 MG/DL (74-106); Osmolality,Calculated 291.1 MOS/KG (273-304); Potassium 3.6 MMOL/L (3.5-5.1); Sodium 142 MMOL/L (136-145); Total Protein 5.9 G/DL (6.4-8.2)
[2022-05-23] MEDS: INSULIN REGULAR 100 UNIT/ML SUBCUT SCH ×2 (07:53→12:44)
[2022-05-23] MEDS ORDERED: amLODIPine 5 MG TABLET PO SCH (09:00)
[2022-05-23] MEDS: PANTOPRAZOLE 40 MG TABLET PO SCH (09:26)
[2022-05-23] MEDS: DOCUSATE SODIUM 100 MG CAPSULE PO SCH (09:26)
[2022-05-23] MEDS: METOPROLOL TARTRATE 25 MG TABLET PO SCH (09:26)
[2022-05-23] MEDS: FERROUS SULFATE 325 MG TABLET PO SCH (09:26)
[2022-05-23] MEDS: ASCORBIC ACID 500 MG TABLET PO SCH (09:26)
[2022-05-23] MEDS: AMIODARONE 200 MG TABLET PO SCH (09:27)
[2022-05-23] MEDS: GLIMEPIRIDE 4 MG TABLET PO SCH (09:27)
[2022-05-23] MEDS: CHLORHEXIDINE 0.12% ORAL RINSE 60 ML BOTTLE SWISH/SPIT SCH (09:57)
[2022-05-23] MEDS ORDERED: FUROSEMIDE 20 MG/2 ML VIAL IV ONE (12:16)
[2022-05-23 13:58] VITALS: BP 146/74
[2022-05-23] MEDS ORDERED: ROSUVASTATIN 20 MG TABLET PO SCH (21:00)
== END 2022-05-23 15:08 | disposition home health service (06) | DRG 235 ==
LOC: N.TELEN 14:52 → N.CVR 05-17 11:50 → N.ICU 05-18 21:13 → N.TELES 05-20 10:40 → N.ICU 05-20 10:41 → N.TELES 05-20 13:48